=== PATIENT | male | born 1965 | race Caucasian/White ===

== ENCOUNTER 2016-09-24 05:22 | Emergency (ER) | payer MEDICAID ==
[~2016-09-24] VITALS: Ht 157.5 cm; Wt 60.0 kg
[~2016-09-24 05:22] MED LIST: ALBU90AE INH; ASPI81TA2 PO; ATOR40TA64 PO; CITA10TA7 PO; LEVE500T26 PO; LEVO125T11 PO; TRAM50TA4 PO
--- OUTSIDE RECORDS SUMMARY | 2016-09-24 05:27 | XMS REPORT | Continuity of Care Document ---
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 Unknown Active Right sided abdominal pain Unknown Active Shortness of breath Unknown Active Restrictive airway disease Unknown Active Shortness of breath Unknown Active Anxiety Unknown Active Shortness of breath Unknown Active Medications Medication Dose Route Sig Days/Qty Instructions Order Date Discontinued Date Status Levothyroxine Sodium 75 Mcg PO DAILY 04/13/10 02/14/12 Discontinued [Citlopram] 20 Mg 03/07/09 03/14/09 Discontinued [Oxapro] 03/07/09 03/07/09 Discontinued [Singulair] 10 Mg DAILY 03/07/09 03/14/09 Discontinued [Singulair] 03/07/09 03/07/09 Discontinued [Singulair] 03/07/09 03/07/09 Discontinued [Cyclobenzaprine] 10 Mg BEDTIME 03/07/09 03/14/09 Discontinued [Cyclobenzaprine] 03/07/09 03/07/09 Discontinued [Cyclobenzaprine] 03/07/09 03/07/09 Discontinued [nortriptyline] 25 Mg BEDTIME 03/07/09 03/14/09 Discontinued [nortriptyline] 03/07/09 03/07/09 Discontinued [ambien] 12.5 NEEDED 03/07/09 03/14/09 Discontinued [ambien] 03/07/09 03/07/09 Discontinued [advil] 200 Mg NEEDED 03/07/09 03/14/09 Discontinued [advil] 03/07/09 03/07/09 Discontinued [advil] 03/07/09 03/07/09 Discontinued [tylenol] 325 Mg NEEDED 03/07/09 03/07/09 Discontinued [tylenol] 03/07/09 03/14/09 Discontinued [aspercream] 03/07/09 03/07/09 Discontinued [aspercream] 04/13/10 07/23/10 Discontinued [peptobismol] 5 Ml NEEDED 03/07/09 03/14/09 Discontinued Amoxicillin Trihydrate 1,000 Mg PO TWICE A DAY 03/15/09 03/20/09 Discontinued Bismuth Subsalicylate 262 Mg PO NEEDED 04/07/09 05/23/09 Discontinued Zolpidem Tartrate 12.5 Mg PO NEEDED 04/07/09 05/23/09 Discontinued Cyclobenzaprine Hcl 10 Mg PO BEDTIME 04/13/10 02/10/12 Discontinued Montelukast Sodium 10 Mg PO DAILY 04/13/10 02/10/12 Discontinued Citalopram Hydrobromide 20 Mg PO DAILY 04/13/10 07/02/11 Discontinued Ibuprofen 200 Mg PO NEEDED 04/07/09 05/23/09 Discontinued Ibuprofen 200 Mg PO NEEDED 03/14/09 03/14/09 Discontinued [Amoxicillin] 03/15/09 03/20/09 Discontinued Ciprofloxacin Hcl 500 Mg PO TWICE A DAY 04/24/09 05/21/09 Discontinued Tamsulosin Hcl 0.4 Mg PO BEDTIME 04/07/09 04/24/09 Discontinued Darifenacin Hydrobromide 7.5 Mg PO DAILY 04/24/09 05/21/09 Discontinued Oxybutynin Chloride 5 Mg PO TWICE A DAY 04/24/09 05/21/09 Discontinued Guar Gum 1 G PO NEEDED 04/24/09 05/23/09 Discontinued Promethazine Hcl 25 Mg PO NEEDED 04/24/09 05/23/09 Discontinued Hydrocortisone 26 Gm TP NEEDED 04/24/09 05/23/09 Discontinued Atenolol 25 Mg PO DAILY 04/13/10 07/02/11 Discontinued Famotidine 20 Mg PO TWICE A DAY 04/13/10 10/13/12 Discontinued Sucralfate 2 Tsp PO 04/13/10 07/23/10 Discontinued Lansoprazole 30 Mg PO TWICE A DAY 04/13/10 10/13/12 Discontinued Simvastatin 20 Mg PO DAILY 04/13/10 08/29/12 Discontinued Meclizine Hcl 25 Mg PO NEEDED 04/13/10 07/02/11 Discontinued Mirtazapine 45 Mg PO DAILY 04/13/10 02/10/12 Discontinued Zaleplon 10 Mg PO TWICE A DAY 04/13/10 07/02/11 Discontinued Escitalopram Oxalate 10 Mg PO 07/01/11 07/02/11 Discontinued Benztropine Mesylate 0.5 Mg PO DAILY 07/01/11 Active Haloperidol 2 Mg PO BEDTIME 07/01/11 02/10/12 Discontinued Escitalopram Oxalate 20 Mg PO DAILY 07/02/11 03/17/12 Discontinued Ciprofloxacin Hcl 500 Mg PO TWICE A DAY 10/17/11 02/10/12 Discontinued Baclofen 10 Mg PO THREE TIMES A DAY 02/10/12 Active Levothyroxine Sodium 350 Mcg PO DAILY 02/14/12 07/25/13 Discontinued Duloxetine Hcl 20 Mg PO DAILY 03/17/12 10/13/12 Discontinued Atorvastatin Calcium 20 Mg PO BEDTIME 08/29/12 02/07/13 Discontinued Lansoprazole 30 Mg PO DAILY 02/07/13 Active Escitalopram Oxalate 20 Mg PO DAILY 02/07/13 07/25/13 Discontinued Meloxicam 7.5 Mg PO DAILY 02/07/13 Active Divalproex Sodium 1,000 Mg PO BEDTIME 02/07/13 Active Atorvastatin Calcium 40 Mg PO DAILY 02/07/13 Active Trazodone Hcl 100 Mg PO BEDTIME 02/07/13 Active Levothyroxine Sodium 300 Mcg PO DAILY 1 Qty 07/25/13 Active Levothyroxine Sodium 50 Mcg PO DAILY 1 Qty 07/25/13 Active Melatonin 2 Tab PO BEDTIME 07/25/13 Active Docusate Sodium 100 Mg PO BEDTIME 07/25/13 Active Vilazodone Hydrochloride 40 Mg PO DAILY 07/25/13 Active Lurasidone Hcl 120 Mg DAILY 07/25/13 Active Gabapentin 300 Mg PO BEDTIME 07/25/13 Active Sennosides 8.6 Mg PO DAILY 07/25/13 Active Levothyroxine Sodium 400 Mcg PO DAILY 1 Qty 07/25/13 Active Tramadol Hcl 50 Mg PO NEEDED 07/25/13 Active Social History Social History Problem Response Recorded Date/Time Smoking Status Unknown if ever smoked 12/29/2013 6:31pm Chewing Tobacco Status No 12/29/2013 6:31pm Hx Substance Use Yes 12/29/2013 6:31pm Hx Alcohol Use Yes 12/29/2013 6:31pm Has the pt used tobacco in the last 12 months No 03/17/2012 4:01pm Query Response Start Date Stop Date Smoking Status Never smoker Hospital Discharge Instructions No hospital discharge instructions. Plan of Care No plan of care. Functional Status No functional status results. Allergies, Adverse Reactions, Alerts Allergen Type Severity Reaction Status Last Updated Chocolate Allergy Unknown Active 12/29/13 hydrocodone bit Allergy Unknown Active 12/29/13 Hydrocodone Allergy Unknown ITCH Active 12/29/13 Acetaminophen Allergy Unknown Active 12/29/13 Ibuprofen Adverse Reaction Unknown RASH Active 12/29/13 Sulfamethoxazole Allergy Unknown Active 12/29/13 Trimethoprim Allergy Unknown Active 12/29/13 Promethazine Allergy Unknown Active 12/29/13 Tolmetin Allergy Unknown Active 12/29/13 Immunizations Name Given Type Hx Influenza Vaccination Y APR 2011 Historical Hx Pneumococcal Vaccination Y 2006 Historical Hx Tetanus, Diptheria, Pertussis Y 2009 Historical Hx Influenza Vaccination Y APR 2011 Historical Hx Tetanus, Diptheria, Pertussis Y 2009 Historical Vital Signs Acute Vital Signs Vital Response Date/Time Temperature (Fahrenheit) 97.6 deg F (96.8 - 99.1) Temperature (Calculated Celsius) 36.79904 degrees C (36.0 - 37.3) Pulse Rate (adult) 73 bpm (60 - 100) Respiratory Rate 13 breaths/min (10 - 20) O2 Sat by Pulse Oximetry 97 % (90 - 100) Blood Pressure 132/80 mm Hg Height 5 ft 0 in Weight 168 lb Body Mass Index 32.0 kg/m^2 Results Test Source Date Result Interp. Ref. Range Comments Activated Partial Thromboplast Time December 29, 2013 7:00pm 36.5 SEC H 24- 36 Ordering r/o VTE Yes Alanine Aminotransferase (ALT/SGPT) December 29, 2013 7:00pm 22 U/L N 21-72 Albumin December 29, 2013 7:00pm 3.7 G/DL N 3.5-5.0 Albumin/Globulin Ratio December 29, 2013 7:00pm 1.0 RATIO L 1.1-2.2 Alkaline Phosphatase December 29, 2013 7:00pm 83 U/L N 38-126 Amylase Level July 25, 2013 8:50am 77 U/L N 30-110 Anion Gap December 29, 2013 7:00pm 11 MEQ/L N 5-15 Arterial Blood Base Excess May 25, 2009 5:16pm 0.0 MMOL/L N -2.0- 2.0 Is the patient on room air? YWhat is the Source? (Liters or Percent) ROOM AIR Arterial Blood HCO3 May 25, 2009 5:16pm 24 MEQ/L N 22-26 Is the patient on room air? YWhat is the Source? (Liters or Percent) ROOM AIR Arterial Blood Oxygen Content May 25, 2009 5:16pm Not Performed - Arterial Blood Partial Pressure CO2 May 25, 2009 5:16pm 35 MMHG N 34-45 Is the patient on room air? YWhat is the Source? (Liters or Percent) ROOM AIR Arterial Blood Total CO2 May 25, 2009 5:16pm 24.9 MEQ/L N 23-27 Is the patient on room air? YWhat is the Source? (Liters or Percent) ROOM AIR Arterial Blood pH May 25, 2009 5:16pm 7.440 N 7.350-7.450 Is the patient on room air? YWhat is the Source? (Liters or Percent) ROOM AIR Aspartate Amino Transf (AST/SGOT) December 29, 2013 7:00pm 25 U/L N 17-59 B-Type Natriuretic Peptide February 28, 2010 1:45pm < 15 PG/ML L 15-100 BUN/Creatinine Ratio December 29, 2013 7:00pm 9 RATIO N 6-26 Band Neutrophils # February 10, 2012 8:11pm 0.5 T/MM3 - Band Neutrophils % February 10, 2012 8:11pm 5.0 % N 0-6 Basophils # (Auto) December 29, 2013 7:00pm 0.1 T/MM3 N 0-0.2 Ordering r/o VTE Yes Basophils # (Manual) May 25, 2009 5:45am 0.0 T/MM3 N 0-0.2 COMMENT DO OFF OF BLOOD FROM THIS MORNING Basophils % (Manual) May 25, 2009 5:45am 0.0 % N 0-2 COMMENT DO OFF OF BLOOD FROM THIS MORNING Basophils (%) (Auto) December 29, 2013 7:00pm 1.2 % N 0-2 Ordering r/o VTE Yes Blood Gas Oxygen Saturation May 25, 2009 5:16pm 91.0 % L 95.0-98.0 Is the patient on room air? YWhat is the Source? (Liters or Percent) ROOM AIR Blood Gas Tidal Volume May 25, 2009 5:16pm Not Performed 0-1200 Blood Gas Vent Rate May 25, 2009 5:16pm Not Performed 0-30 Blood Urea Nitrogen December 29, 2013 7:00pm 8.0 MG/DL L 9-20 Calcium Level December 29, 2013 7:00pm 8.7 MG/DL N 8.4-10.2 Calculated Osmolality December 29, 2013 7:00pm 271 MOSM/KG N 261-280 Carbon Dioxide Level December 29, 2013 7:00pm 26 MEQ/L N 22-30 Chloride Level December 29, 2013 7:00pm 105 MEQ/L N 98-107 Cholesterol Level January 31, 2012 8:45am 196 MG/DL N 132-199 Cholesterol/HDL Ratio January 31, 2012 8:45am 5.0 RATIO N 0-5.0 Conjugated Bilirubin August 29, 2012 12:00pm 0.00 MG/DL N 0.00-0.30 Creatinine December 29, 2013 7:00pm 0.9 MG/DL N 0.8-1.5 D-Dimer December 29, 2013 7:00pm < 150 NG/ML 0-230 <224 NG/ML= PRESUMPTIVE NEGATIVE FOR PE OR DVT>224 NG/ML=ADDITIONAL EVALUATION FOR PE OR DVT RECOMMENDED Differential Total Cells Counted February 28, 2010 1:45pm 50 % - Eosinophils # (Auto) December 29, 2013 7:00pm 0.5 T/MM3 N 0-0.5 Ordering r/ o VTE Yes Eosinophils # (Manual) February 10, 2012 8:11pm 0.7 T/MM3 H 0-0.5 Eosinophils % (Manual) February 10, 2012 8:11pm 6.0 % H 0-4 Eosinophils (%) (Auto) December 29, 2013 7:00pm 7.7 % H 0-4 Ordering r/o VTE Yes Globulin December 29, 2013 7:00pm 3.6 G/DL N 2.4-3.6 Glucose Level December 29, 2013 7:00pm 97 MG/DL N 75-110 Group A Streptococcus Screen April 10, 2010 5:25am Negative - Strep culture confirmation to follow Hematocrit December 29, 2013 7:00pm 46.9 % N 41-53 Ordering r/o VTE Yes Hemoglobin December 29, 2013 7:00pm 15.5 GM/DL N 13.5-17.5 Ordering r/o VTE Yes Hemoglobin A1c December 16, 2011 12:40pm 5.5 % L 6-7 <6.0 NON-DIABETIC RANGE6.0-7.0 ADA THERAPEUTIC RANGE >7.0 ACTION SUGGESTED LDL Cholesterol, Calculated January 31, 2012 8:45am 157 N 66-159 Lipase July 25, 2013 8:50am 61 U/L N 23-300 Lymphocytes # (Auto) December 29, 2013 7:00pm 1.6 T/MM3 N 1-4.8 Ordering r/ o VTE Yes Lymphocytes # (Manual) February 10, 2012 8:11pm 3.7 T/MM3 N 1-4.8 Lymphocytes % (Manual) February 10, 2012 8:11pm 34.0 % N 23-45 Lymphocytes (%) (Auto) December 29, 2013 7:00pm 23.5 % N 23-45 Ordering r/ o VTE Yes Mean Corpuscular Hemoglobin December 29, 2013 7:00pm 31.6 UUG N 26-34 Ordering r/o VTE Yes Mean Corpuscular Hemoglobin Concent December 29, 2013 7:00pm 33.0 GM/DL N 31 -37 Ordering r/o VTE Yes Mean Corpuscular Volume December 29, 2013 7:00pm 95.5 UM3 N 80-100 Ordering r/o VTE Yes Mean Platelet Volume December 29, 2013 7:00pm 9.5 UM3 N 9.4-12.4 Ordering r /o VTE Yes Monocytes # (Auto) December 29, 2013 7:00pm 0.5 T/MM3 N 0-0.8 Ordering r/o VTE Yes Monocytes # (Manual) February 10, 2012 8:11pm 0.5 T/MM3 N 0-0.8 Monocytes % (Manual) February 10, 2012 8:11pm 5.0 % N 0-9.0 Monocytes (%) (Auto) December 29, 2013 7:00pm 7.7 % N 0-9.0 Ordering r/o VTE Yes Neutrophils # (Auto) December 29, 2013 7:00pm 4.1 T/MM3 N 1.8-7.7 Ordering r/o VTE Yes Neutrophils # (Manual) February 10, 2012 8:11pm 5.5 T/MM3 N 1.8-7.7 Neutrophils % (Manual) February 10, 2012 8:11pm 50.0 % N 33-66 Neutrophils (%) (Auto) December 29, 2013 7:00pm 59.5 % N 33-66 Ordering r/ o VTE Yes Platelet Count December 29, 2013 7:00pm 269 T/MM3 N 130-400 Ordering r/o VTE Yes Potassium Level December 29, 2013 7:00pm 3.2 MEQ/L L 3.6-5 Prolactin December 11, 2012 7:40am 37.4 NG/ML - Normal Female (Non- ): 3.0-18.6 ng/ml;Males: 3.7-17.9 ng/ml Prostate Specific Antigen March 07, 2009 10:57pm 0.82 NG/ML N 0-4.0 Prothromb Time International Ratio December 29, 2013 7:00pm 0.98 N 0.81- 1.09 THERAPUTIC RANGE=2.00-3.00 FOR ANTI-THROMBOSIS THERAPUTIC RANGE=2.50- 3.50 FOR IMPLANTED VALVE RDW Standard Deviation December 29, 2013 7:00pm 45.1 FL N 36.9-50.2 Ordering r/o VTE Yes Reactive Lymphocytes January 08, 2008 10:00am 3.0 % H 0-0 COMMENT ADMIT [id number] Red Blood Count December 29, 2013 7:00pm 4.91 M/MM3 N 4.50-5.90 Ordering r/ o VTE Yes Sodium Level December 29, 2013 7:00pm 142 MEQ/L N 134-144 Tests Not Done September 05, 2009 12:00am Not done - TYPE MAPPER Thyroid Stimulating Hormone (TSH) December 29, 2013 7:00pm 130.00 MIU/L H 0.47-4.68 Total Bilirubin December 29, 2013 7:00pm 0.30 MG/DL N 0.20-1.30 Total Protein December 29, 2013 7:00pm 7.3 G/DL N 6.3-8.2 Triglycerides Level January 31, 2012 8:45am 158 MG/DL N 40-160 Troponin I December 29, 2013 7:00pm < 0.012 ng/ml 0-0.12 Unconjugated Bilirubin August 29, 2012 12:00pm 0.90 MG/DL N 0.00-1.10 Urine Bacteria July 02, 2011 9:45pm 2+ H - Has specimen been collected/obtained? Y Urine Bilirubin July 25, 2013 9:45am Negative - Has specimen been collected/obtained? Y Urine Blood July 25, 2013 9:45am Negative - Has specimen been collected/obtained? Y Urine Collection Type July 25, 2013 9:45am Cleancatch-midstream - Has specimen been collected/obtained? Y Urine Color July 25, 2013 9:45am Yellow - Has specimen been collected/obtained? Y Urine Culture Indicated July 02, 2011 9:45pm Cult reflexed &setup - Has specimen been collected/obtained? Y Urine Glucose (UA) July 25, 2013 9:45am Negative - Has specimen been collected/obtained? Y Urine Ketones July 25, 2013 9:45am Negative - Has specimen been collected/obtained? Y Urine Leukocyte Esterase July 25, 2013 9:45am Negative - Has specimen been collected/obtained? Y Urine Mucus April 13, 2010 10:22am Present - Has specimen been collected/obtained? Y Urine Nitrite July 25, 2013 9:45am Negative - Has specimen been collected/obtained? Y Urine Protein July 25, 2013 9:45am Negative - Has specimen been collected/obtained? Y Urine RBC July 02, 2011 9:45pm 50-200 /HPF H - Has specimen been collected/obtained? Y Urine Specific [place] July 25, 2013 9:45am 1.025 - Has specimen been collected/obtained? Y Urine Squamous Epithelial Cells May 23, 2009 9:34pm Few - COMMENT C AND S IF INDICATEDHas specimen been collected/obtained? Y Urine Turbidity July 25, 2013 9:45am Clear - Has specimen been collected/obtained? Y Urine Urobilinogen July 25, 2013 9:45am 0.2 EU/DL - Has specimen been collected/obtained? Y Urine WBC July 02, 2011 9:45pm 30-50 /HPF H - Has specimen been collected/obtained? Y Urine WBC Clumps March 15, 2009 4:35pm Few - Has specimen been collected/obtained? Y Urine Yeast March 15, 2009 4:35pm 3+ - Has specimen been collected/obtained? Y Urine pH July 25, 2013 9:45am 5.5 - Has specimen been collected/ obtained? Y VLDL Cholesterol January 31, 2012 8:45am 31.6 MG/DL H 0-28 Valproic Acid (Depakene) Level February 08, 2013 2:37pm < 10.0 UG/ML L 50- 120 CALL RESUTLS [id number] OPT 5 STAT PLEASE White Blood Count December 29, 2013 7:00pm 6.9 T/MM3 N 4.5-11.0 Ordering r/ o VTE Yes Chemistry Specimen Hemolysis December 29, 2013 7:00pm 16 N 0-25 0-25: No Hemolysis.26-70: Slight Hemolysis - can falsely elevate K and Urine Protein. 71-285: Moderate Hemolysis - can falsely elevate K, Troponin I, CA 19-9, PTH, CSF GLucose, and Urine Protein, and can falsely decrease Phenytoin. 286-999: Gross Hemolysis - can falsely elevate K, Troponin I, CA 19-9, PTH, CSF Glucose, and Urine Protine, and can falsely decrease Phenytoin. Recommend specimen recollection. Oxygen Delivery Method (LAB) May 25, 2009 5:16pm Room air - Is the patient on room air? YWhat is the Source? (Liters or Percent) ROOM AIR Urinalysis Comment July 25, 2013 9:45am Microscopic not ind. - Has specimen been collected/obtained? Y Glucometer October 13, 2012 11:15am 114 mg/dL H 75-110 Lab Scanned Report February 08, 2013 5:35pm LAB TEST FORM REQUEST [id number] - EKG May 23, 2009 1:15pm Complete - HDL Cholesterol Direct January 31, 2012 8:45am 39 MG/DL L 40-60 Atypical/Reactive Lymphocytes January 08, 2008 10:00am 0.3 T/MM3 H 0-0 COMMENT ADMIT [id number] Turbidity December 29, 2013 7:00pm 57 H 0-20 0-21: Turbidity not present.22 -999: Turbidity present - Gross turbidity can falsely decrease Lipase and Triglycerides. Glomerular Filtration Rate Calc December 29, 2013 7:00pm 90 - Immature Granulocyte # (Auto) December 29, 2013 7:00pm 0.03 T/MM3 N 0.00- 0.03 Ordering r/o VTE Yes Immature Granulocyte % (Auto) December 29, 2013 7:00pm 0.4 % N 0.0-0.5 Ordering r/o VTE Yes Arterial Blood pO2 at Patient Temp May 25, 2009 5:16pm 58 MMHG L 80 -100 Is the patient on room air? YWhat is the Source? (Liters or Percent) ROOM AIR Icterus Index December 29, 2013 7:00pm < 2 0-7 AW-Ckt-H-Type Natriuretic Peptide December 29, 2013 7:00pm 23 PG/ML N 0-175 Rule in cut points: <50 years old=450; 50-75 years old=900; >75 years old=1800; When utilizing ProBNP rule-in cut points, adjustment for impaired renal function is typically not required. Urine Microscopic Not Indicated February 10, 2012 9:15pm Not indicated - Has specimen been collected/obtained? Y Blood Culture Blood February 28, 2010 1:45pm NO GROWTH AFTER 5 DAYS Group A Streptococcus Culture Throat April 10, 2010 5:47am Helicobacter pylori Rapid Urease Gastric Biopsy May 24, 2009 8:12am Urine Culture Urine, Straight Cath July 02, 2011 10:06pm Procedures Procedure Status Date Provider(s) PLACE NEEDLE IN VEIN completed 12/29/13 JD MACHADO MD Encounters Encounter Location Date/Time Departed Emergency Room [facility] 12/29/13 6:19pm Registered Clinic [facility] 12/25/13 7:51am Recent Diagnosis
--- NOTE | 2016-09-24 05:28 | NUR ---
PROVIDER DR GATICA IN ROOM TO SEE PT
[2016-09-24 05:30] VITALS: Ht 157.5 cm; Wt 60.0 kg
[2016-09-24] MEDS ORDERED: ALBUTEROL INH.SOLN. 2.5mg/3ml (0.083%) Neb. AEROSOL ONE (05:30)
--- NOTE | 2016-09-24 05:33 | ERPDOC ---
Departure Disposition Decision Date: Sep 24, 2016 (HÉCTOR GATICA MD) Disposition Decision Time: 07:07 (ARTURO RAMEY DO) Disposition: 01 DISCHARGED HOME, SELF-CARE Impression Impression (HÉCTOR GATICA MD) Impression: Primary Impression: Asthma exacerbation Severity: Mild (ARTURO RAMEY DO) Condition: Improved Seen By: Physician only (ARTURO RAMEY DO) Referrals: LISA JAIME DO (PCP) 2 Days Patient Instructions: Asthma (ED), Reactive Airways Disease (ED) Problems/Meds/Labs Reviewed?: Yes Medications reviewed and manag: Yes (ARTURO RAMEY DO) Follow up care ordered?: Yes Mental Status: Alert, Oriented (ARTURO RAMEY DO) Scripts Albuterol Sulfate (Albuterol Sulfate) 2.5 Mg/0.5 Ml Vial.neb 1 VIAL AEROSOL Q4HPRN for WHEEZING, #120 VIAL 0 Refills Prov: ARTURO RAMEY DO 09/24/16 Prednisone (Prednisone) 20 Mg Tablet 40 MG PO DAILY for 5 Days, #10 TAB 0 Refills Take daily each morning Prov: ARTURO RAMEY DO 09/24/16 HPI - Dyspnea General Chief Complaint: Dyspnea/Respdistress Stated Complaint: SHORTNESS OF BREATH Time Seen by Provider: 05:24 Source: patient Exam Limitations: no limitations (HÉCTOR GATICA MD) Time Seen by Provider: 06:47 (ARTURO RAMEY DO) HPI - Dyspnea Initial Comments Patient presents with a 90 minutes of feeling short of breath with a slight cough. Feels as though his asthma is flaring up. Patient took 2 puffs of an inhaler at home, did not improve, so he came to the ER. Similar symptoms with asthma in the past Occurred At: home Onset/Timing: Rapid Duration: 1-3 hrs Severity: mild Prior Episodes/Possible Cause: occasional episodes Associated Symptoms: cough, shortness of breath, DENIES: chest pain, diaphoresis, fever/chills, headaches, loss of appetite, malaise, nausea/vomiting , rash, seizure, syncope, weakness Aspirin Treatment Today: unknown Hx of Similar Symptoms: Yes (HÉCTOR GATICA MD) Allergies: Coded Allergies: Chocolate (Verified Allergy, Unknown, RASH, 09/24/16) hydrocodone (Verified Allergy, Unknown, ITCH, 09/24/16) potassium phosphate (Unverified Allergy, Unknown, 09/24/16) promethazine (Verified Allergy, Unknown, 09/24/16) sodium bicarbonate (Unverified Allergy, Unknown, 09/24/16) sulfamethoxazole (Verified Allergy, Unknown, 09/24/16) tolmetin (Verified Allergy, Unknown, 09/24/16) trimethoprim (Verified Allergy, Unknown, 09/24/16) ibuprofen (Verified Adverse Reaction, Unknown, RASH, 09/24/16) Past History Past Medical History Metabolic: hypothyroidism ENMT: vision problems Respiratory: asthma GI: GERD, IBS Male: UTI, kidney stones, other, prostatitis Neurological: other Musculoskeletal: osteoarthritis Psychological: anxiety, depression (HÉCTOR GATICA MD) Surgical History General: EGD, appendix, colonoscopy, gallbladder Reproductive/: other Joint: hip, other (HÉCTOR GATICA MD) Vaccines Hx Influenza Vaccination: No (not this year) Hx Pneumococcal Vaccination: No (unsure) Hx Tetanus, Diptheria, Pertuss: Yes (2009) (HÉCTOR GAITCA MD) Social History Does patient use chewing tobac: No Substance Use Type: does not use Alcohol Intake: none Marital Status: Single Housing: house Household Members: family Service: No Current Occupational Status: unemployed Occupational Hazard: No Advance Directives: Yes Full Code (HÉCTOR GATICA MD) Review of Systems Constitutional Constitutional: DENIES: appetite decrease, appetite increase, chills, dizziness , fever, weakness (HÉCTOR GATICA MD) ENMT Ears: DENIES: pain Hearing: DENIES: hearing loss, tinnitus Balance: DENIES: vertigo Mouth/Throat: DENIES: change in swallowing, change in voice, hoarsness, painful swallowing, sore throat (HÉCTOR GATICA MD) Cardiovascular Cardiac: DENIES: chest pain, dyspnea on exertion Rhythm/Rate: DENIES: irregular beat, palpitations, tachycardia Vascular: DENIES: pedal edema (HÉCTOR GATICA MD) Pulmonary Respiratory: cough, dyspnea, DENIES: exposure to TB, hyperventilation, pleuritic chest pain, pneumonia hx, recent risky activities, sputum, tachypnea ( HÉCTOR GATICA MD) GI Upper Abdomen: DENIES: dysphagia, heartburn/indigestion, nausea, pain, vomiting Lower Abdomen: DENIES: blood in stool, constipation, diarrhea, pain (HÉCTOR GATICA MD) General: DENIES: burning, dysuria, frequency, pain, urgency (HÉCTOR GATICA MD) Musculoskeletal General: DENIES: cramps, joint pain, joint swelling, pain, weakness (HÉCTOR GATICA MD) Integumentary Skin: DENIES: rash, sores (HÉCTOR GATICA MD) Neurological General: DENIES: headache, numbness, tingling, vertigo, weakness (HÉCTOR GATICA MD) Physical Exam General General Nourishment: well nourished, well developed, appears stated age General Body Habitus: well groomed (HÉCTOR GATICA MD) Vitals and Pain First Documented Vital Signs Date Time Temp Pulse Resp B/P Pulse Ox O2 Delivery O2 Flow Rate FiO2 09/24/16 05:30 98.6 88 23 121/59 97 Room Air (ARTURO RAMEY DO) Vitals and Pain Weight: Kilograms: Height (feet): 5 Height (inches): 0 Triage Pain Scale: (HÉCTOR GATICA MD) RN VS reviewed by Provider: Yes (HÉCTOR GATICA MD) Normal Exams: Head: Normocephalic w/o trauma Eyes: Pupils are PERRLA w/ EOMI, No scleral icterus, irritation, or foreign bodies noted Dental: No fractured, loose, or missing teeth noted Neck: Full range of motion, without adenopathy, JVD, bruits or thyromegaly CV: Regular rate and rhythm, without murmur or gallop, Pulses 2+ all extremities, capillary refill, <2 seconds all ext., no pedal edema noted Abdomen: Bowel sounds positive, soft, non-tender, non-distended, no hepatosplenomegaly, masses or bruits noted Lymphatic: No lymphadenopathy, or lymphedema noted Musculoskeletal: No tenderness, or deformity noted, good range of motion, all extremities Integumentary: No rashes, hives, or bruising noted, hair and nails, without abnormality Neurologic: Patient is alert, and oriented, cranial nerves, motor/sensory/ cerebellar, exams w/o gross deficits, to observation Psychiatric: Patient exhibits, appropriate attention, emotion and affect (HÉCTOR GATICA MD) Respiratory (brief) Respiratory: FOUND: equal bilaterally, symmetrical, wheezes (mild wheezes bilaterally, moderate air movement), NOT FOUND: clear all [place], rales, tenderness (HÉCTOR GATICA MD) Progress Results/Orders Orders Procedure Category Date Status Time Albuterol Sulfate PHA 09/24/16 Complete (Proventil 2.5 Mg/3 Ml 05:30 Albuterol/Ipratropium PHA 09/24/16 Complete (Duoneb) 06:00 Prednisone 20mg PHA 09/24/16 Complete (Prepack) (Prednisone 06:00 Chest, Pa & Lateral RAD 09/24/16 Taken (ARTURO RAMEY DO) Orders Procedure Category Date Status Time Albuterol Sulfate PHA 09/24/16 Complete (Proventil 2.5 Mg/3 Ml 05:30 (HÉCTOR GATICA MD) Medications Current ED Medications Albuterol Sulfate (Proventil 2.5 Mg/3 ml) 5 mg O ONCE AEROSOL Last administered on 09/24/16 05:35; Start 09/24/16 at 05:30; Stop 09/24/16 at 05:31 ; Status DC Albuterol/ Ipratropium (Duoneb) 6 ml O ONCE AEROSOL Last administered on 06:04; Start 09/24/16 at 06:00; Stop 09/24/16 at 06:01; Status DC Prednisone (PredniSONE 20MG (PrePack)) 1 pack O ONCE SENT HOME Last administered on 09/24/16 05:54; Start 09/24/16 at 06:00; Stop 09/24/16 at 06:01 ; Status DC (ARTURO RAMEY DO) Medications Current ED Medications Albuterol Sulfate (Proventil 2.5 Mg/3 ml) 5 mg O ONCE AEROSOL Last administered on 09/24/16 05:35; Start 09/24/16 at 05:30; Stop 09/24/16 at 05:31 ; Status DC (HÉCTOR GATICA MD) Progress Progress Patient given 2 Proventil treatments [id number] - some improvement, however patient has mild persistent cough, feeling like his breathing is still tighter than usual. Chest x-ray is ordered, patient is given additional 2 nebs 2, with prednisone 60 mg orally Disposed to Dr. Ramey at 6 AM pending chest x-ray and reevaluation (HÉCTOR GATICA MD) Progress Upon reassessment patient is feeling markedly improved in the emergency Department. Patient was given prednisone 60 mg by mouth times one. Patient was given nebulized breathing treatments in the emergency department with improvement of symptoms. Patient is mildly tachycardic secondary to the nebulized albuterol. Patient notes chest x-ray is unremarkable. Patient is feeling back to baseline. Patient is discharged home in improved condition. Patient is to follow up as instructed. Patient is to return to the emergency Department if his condition worsens or changes in any manner. Patient is in agreement with the current plan of management. Patient is to follow up as instructed. Patient was provided with a prescription for prednisone 40 mg by mouth daily 5 days. Patient is also provided with a refill of his albuterol nebulizer solution which he has been out of. (ATRURO RAMEY DO) Xray Xray : Xray: CXR PA/Lat Interpretation: Normal, Interpreted by Me (ARTURO RAMEY DO) HÉCTOR GATICA MD Sep 24, 2016 05:33 ARTURO RAMEY DO Sep 24, 2016 07:10
--- NOTE | 2016-09-24 05:35 | NUR ---
STATUS RT STAFF IN ROOM. RT TX IN PROGRESS
[2016-09-24] MEDS ORDERED: TOPI25TA37 PO (05:49)
[2016-09-24] MEDS ORDERED: PredniSONE 20mg TAB #3 (PrePack) SENT HOME ONE (06:00)
[2016-09-24] MEDS ORDERED: ALBUTEROL/IPRATROPIUM INHAL. 2.5mg-0.5mg/3ml Neb. AEROSOL ONE (06:00)
--- NOTE | 2016-09-24 06:16 | NUR ---
RADIOLOGY PT TO RADIOLOGY PER CART
--- OUTSIDE RECORDS SUMMARY | 2016-09-24 06:18 | XMS REPORT | Continuity of Care Document ---
Author Author [facility] Organization [facility] Address Unknown Phone Unavailable Care Team Providers Care Shovel Loader Operator Name Role Phone ACE REBOLLAR MD Primary Care Physician [phone] Insurance Providers Payer Name Policy Number Subscriber Name Relationship [facility] [id number] Raya Marvin 18 Self Advance Directives Directive [...] F (96.8 - 99.1) Temperature (Calculated Celsius) 36.05349 degrees C (36.0 - 37.3) Pulse Rate [...] 10:00am 3.0 % H 0-0 COMMENT ADMIT [id number] Red Blood Count December 29, 2013 7:00pm 4.91 M/MM3 N 4.50-5.90 Ordering r/ o VTE Yes Sodium Level December 29, 2013 7:00pm 142 MEQ/L N 134-144 Tests Not Done September 05, 2009 12:00am Not done - SOCK AND STOCKING IRONER Thyroid Stimulating Hormone (TSH) December 29, 2013 [...] Has specimen been collected/obtained? Y Urine Specific [place] July 25, 2013 9:45am 1.025 - Has [...] 10.0 UG/ML L 50- 120 CALL RESUTLS [id number] OPT 5 STAT PLEASE White Blood Count [...] 08, 2013 5:35pm LAB TEST FORM REQUEST [id number] - EKG May 23, 2009 1:15pm Complete - HDL Cholesterol Direct January 31, 2012 8:45am 39 MG/DL L 40-60 Atypical/Reactive Lymphocytes January 08, 2008 10:00am 0.3 T/MM3 H 0-0 COMMENT ADMIT [id number] Turbidity December 29, 2013 7:00pm 57 H [...] December 29, 2013 7:00pm < 2 0-7 GA-[id number]-[id number]-Type Natriuretic Peptide December 29, 2013 7:00pm 23 [...] Encounters Encounter Location Date/Time Departed Emergency Room [facility] 12/29/13 6:19pm Registered Clinic [facility] 12/25/13 7:51am Recent Diagnosis
--- NOTE | 2016-09-24 06:26 | NUR ---
RADIOLOGY PT FROM RADIOLOGY PER CART
--- NOTE | 2016-09-24 07:00 | NUR ---
STATUS PT REPORTS HE IS FEELING A LITTLE BETTER
[2016-09-24] MEDS ORDERED: PRED20TA PO (07:10)
[2016-09-24] MEDS ORDERED: ALBU2.5V2 AEROSOL (07:10)
[2016-09-24 07:17] VITALS: BP 106/70; PULSE 102; RESP 18; TEMP 98.6; O2SAT 98
--- NOTE | 2016-09-24 07:17 | NUR ---
DISMISSAL DISMISSAL INSTRUCTIONS WITH RX X2 TO PT AND WITHOUT FURTHER QUESTIONS. PT LEFT ON PERSONAL SCOOTER WITHOUT DIFFICULTY
--- NOTE | 2016-09-24 07:50 | DI ---
INDICATION: ITS.REASON: cough, dyspnea PROCEDURE: CHEST 2-VIEWS UPRIGHT (PA \T\ LAT) Encounter: Initial Comparison: August 16, 2016 Findings: The lungs are stable in appearance without new focal airspace consolidation. There is no pleural effusion or pneumothorax. The heart size, pulmonary vascularity and mediastinal contours are unchanged. IMPRESSION: Stable appearance of the chest without acute cardiopulmonary disease. There is a preliminary report by virtual radiologic. .
== END 2016-09-24 07:17 | disposition home or self-care (01) ==
LOC: ED 05:22
DX: J45.901 Unspecified asthma with (acute) exacerbation (principal)
CPT/HCPCS: 71020; 94640; 99283; J7512; J7611

== ENCOUNTER 2016-10-21 13:08 | Emergency (ER) | payer MEDICAID ==
[~2016-10-21] VITALS: Ht 152.4 cm; Wt 71.1 kg
[~2016-10-21 13:08] MED LIST changes: +ALBU2.5V2 AEROSOL; +PRED20TA PO; +TOPI25TA37 PO; -TRAM50TA4 PO
[2016-10-21 13:09] VITALS: TEMP 98; Ht 152.4 cm; Wt 71.1 kg
--- OUTSIDE RECORDS SUMMARY | 2016-10-21 13:12 | XMS REPORT | Continuity of Care Document ---
Author Author [facility] Organization [facility] Address Unknown Phone Unavailable Care Team Providers Care Restaurant Front Manager Name Role Phone ACE REBOLLAR MD Primary Care Physician [phone] Insurance Providers Payer Name Policy Number Subscriber Name Relationship [facility] [id number] Raya Marvin 18 Self Advance Directives Directive [...] F (96.8 - 99.1) Temperature (Calculated Celsius) 36.86714 degrees C (36.0 - 37.3) Pulse Rate [...] 10:00am 3.0 % H 0-0 COMMENT ADMIT [id number] Red Blood Count December 29, 2013 7:00pm 4.91 M/MM3 N 4.50-5.90 Ordering r/ o VTE Yes Sodium Level December 29, 2013 7:00pm 142 MEQ/L N 134-144 Tests Not Done September 05, 2009 12:00am Not done - PROMOTION SPECIALIST Thyroid Stimulating Hormone (TSH) December 29, 2013 [...] Has specimen been collected/obtained? Y Urine Specific [place] July 25, 2013 9:45am 1.025 - Has [...] 10.0 UG/ML L 50- 120 CALL RESUTLS [id number] OPT 5 STAT PLEASE White Blood Count [...] 08, 2013 5:35pm LAB TEST FORM REQUEST [id number] - EKG May 23, 2009 1:15pm Complete - HDL Cholesterol Direct January 31, 2012 8:45am 39 MG/DL L 40-60 Atypical/Reactive Lymphocytes January 08, 2008 10:00am 0.3 T/MM3 H 0-0 COMMENT ADMIT [id number] Turbidity December 29, 2013 7:00pm 57 H [...] December 29, 2013 7:00pm < 2 0-7 BK-Fsd-S-Type Natriuretic Peptide December 29, 2013 7:00pm 23 [...] Encounters Encounter Location Date/Time Departed Emergency Room [facility] 12/29/13 6:19pm Registered Clinic [facility] 12/25/13 7:51am Recent Diagnosis
--- NOTE | 2016-10-21 13:16 | NUR ---
PROVIDER Jon PRASAD APRN AT BEDSIDE FOR EXAM.
--- NOTE | 2016-10-21 13:30 | NUR ---
RADIOLOGY PT TO RADIOLOGY BY CART AT THIS TIME.
--- NOTE | 2016-10-21 13:40 | NUR ---
RETURN PT RETURNED FROM RADIOLOGY BY CART AT THIS TIME.
[2016-10-21 13:41] LABS: BASOPHILS # (AUTO) 0.1 T/MM3 (0-0.2); BASOPHILS % (AUTO) 0.6 % (0-2); EOSINOPHILS # (AUTO) 0.4 T/MM3 (0-0.5); EOSINOPHILS % (AUTO) 4.9 % (0-4); HCT - HEMATOCRIT 50.8 % (41-53); HGB - HEMOGLOBIN 16.6 GM/DL (13.5-17.5); IMMATURE GRANULOCYTE # (AUTO) 0.03 T/MM3 (0.00-0.03); IMMATURE GRANULOCYTE % (AUTO) 0.3 % (0.0-0.5); LYMPHOCYTES # (AUTO) 1.8 T/MM3 (1-4.8); MEAN CORPUSCULAR HGB 31.5 UUG (26-34); MEAN CORPUSCULAR HGB CONC(MCHC 32.7 GM/DL (31-37); MEAN CORPUSCULAR VOLUME 96.4 UM3 (80-100); MEAN PLATELET VOLUME 9.7 UM3 (9.4-12.4); MONOCYTES # (AUTO) 0.5 T/MM3 (0-0.8); MONOCYTES % (AUTO) 5.9 % (0-9.0); NEUTROPHILS #(AUTO)-ABSOLUTE 6.2 T/MM3 (1.8-7.7); NEUTROPHILS % (AUTO) 68.3 % (33-66); RED BLOOD COUNT 5.27 M/MM3 (4.50-5.90)
--- NOTE | 2016-10-21 13:45 | DI ---
Indication: ITS.REASON: unresponsive episodes PROCEDURE: CT HEAD W/O CONTRAST: Encounter: Initial Comparison: Head CT dated May 24, 2016 Technique: Axial CT images through the head were performed without contrast. Iterative Reconstruction dose reducing technique was utilized. FINDINGS: Abnormal but stable appearance of the brain with a large cystic lesion replacing portions of the right frontal and parietal lobes apparently communicating with the abnormal appearing right lateral ventricle. There is no acute hemorrhage or new midline shift. The lateral frontal and basal ganglia calcifications are redemonstrated. No discrete territorial stroke identified. Ventricular system is grossly stable. No acute calvarial fracture. Impression: Stable appearance of the brain without evidence of acute intracranial hemorrhage or obvious acute stroke. .
[2016-10-21 13:47] LABS: ANION GAP 13 MEQ/L (5-15); BUN/CREATININE RATIO 11 RATIO (6-26); CALCIUM 9.5 MG/DL (8.4-10.2); CHLORIDE 112 MEQ/L (98-107); CO2 - CARBON DIOXIDE 24 MEQ/L (22-30); GLOMERULAR FILTRATION RATE 79; GLUCOSE 117 MG/DL (75-110); POTASSIUM 3.9 MEQ/L (3.6-5); SODIUM 149 MEQ/L (134-144)
--- NOTE | 2016-10-21 13:49 | DI ---
Indication: ITS.REASON: unresponsive episode PROCEDURE: CHEST 1 VIEW: Encounter: Initial Comparison: September 24, 2016 Findings: The lungs are stable in appearance without new focal airspace consolidation. Hypoinflation. There is no pleural effusion or pneumothorax. Cholecystectomy clips. The heart size, pulmonary vascularity and mediastinal contours are unchanged. IMPRESSION: Stable appearance of the chest without acute cardiopulmonary disease. .
[2016-10-21] MEDS ORDERED: ALBU2.5V7 AEROSOL (13:55)
[2016-10-21] MEDS ORDERED: TOPI50TA25 PO (13:57)
[2016-10-21] MEDS ORDERED: PRED10TA PO (13:57)
[2016-10-21] MEDS ORDERED: CITA20TA9 PO (13:57)
--- OUTSIDE RECORDS SUMMARY | 2016-10-21 13:58 | XMS REPORT | Continuity of Care Document ---
Author Author [facility] Organization [facility] Address Unknown Phone Unavailable Care Team Providers Care Salvage Machine Operator Name Role Phone ACE REBOLLAR MD Primary Care Physician [phone] Insurance Providers Payer Name Policy Number Subscriber Name Relationship [facility] [id number] Raya Marvin 18 Self Advance Directives Directive [...] F (96.8 - 99.1) Temperature (Calculated Celsius) 36.16671 degrees C (36.0 - 37.3) Pulse Rate [...] 10:00am 3.0 % H 0-0 COMMENT ADMIT [id number] Red Blood Count December 29, 2013 7:00pm 4.91 M/MM3 N 4.50-5.90 Ordering r/ o VTE Yes Sodium Level December 29, 2013 7:00pm 142 MEQ/L N 134-144 Tests Not Done September 05, 2009 12:00am Not done - CONDUIT MECHANIC Thyroid Stimulating Hormone (TSH) December 29, 2013 [...] Has specimen been collected/obtained? Y Urine Specific [place] July 25, 2013 9:45am 1.025 - Has [...] 10.0 UG/ML L 50- 120 CALL RESUTLS [id number] OPT 5 STAT PLEASE White Blood Count [...] 08, 2013 5:35pm LAB TEST FORM REQUEST [id number] - EKG May 23, 2009 1:15pm Complete - HDL Cholesterol Direct January 31, 2012 8:45am 39 MG/DL L 40-60 Atypical/Reactive Lymphocytes January 08, 2008 10:00am 0.3 T/MM3 H 0-0 COMMENT ADMIT [id number] Turbidity December 29, 2013 7:00pm 57 H [...] December 29, 2013 7:00pm < 2 0-7 LE-Xob-J-Type Natriuretic Peptide December 29, 2013 7:00pm 23 [...] Encounters Encounter Location Date/Time Departed Emergency Room [facility] 12/29/13 6:19pm Registered Clinic [facility] 12/25/13 7:51am Recent Diagnosis
--- NOTE | 2016-10-21 14:26 | ERPDOC ---
Departure Disposition Decision Date: Oct 21, 2016 Disposition Decision Time: 14:23 Disposition: 01 DISCHARGED HOME, SELF-CARE Impression Impression Impression: Primary Impression: Observed seizure-like activity Severity: Moderate Condition: Stable Seen By: Mid-level only Referrals: LISA LEE DO (PCP) Patient Instructions: Nonepileptic Seizures (ED) Problems/Meds/Labs Reviewed?: Yes Medications reviewed and manag: Yes Additional Instructions: Please keep in contact with Dr. Lee's office to see if they were able to get the appointment with the neurologist scheduled for follow up. I did speak with her and she is working on this referral. Please make sure that you are getting plenty of rest and eating and drinking at home. If you have any further issues/ concerns then return to ER. Follow up care ordered?: Yes Mental Status: Alert HPI - General Medical General Chief Complaint: Altered Mental Status Stated Complaint: STARING INTO SPACE Time Seen by Provider: 13:15 Source: patient, family () Exam Limitations: no limitations HPI - General Medical Initial Comments He was at home today and was playing Wii. He did have a 20 minute episode of unresponsiveness where he had his eyes opened but stared out into space. He did not move or respond to commands at this time. He does not recall the incident. Upon arrival by EMS he was in this state but then did come around during transport. No medications were given. Upon examination in Er he is alert and oriented and talking appropriately. He states that he had an episode like this in May of last year. Was evaluated in ER at that time and had a negative head Ct. He also has had a negative MRI in late last year. He has seen Dr Lopez in the past but is going to be transitioning care to a new neurologist in [place]. He had an appointment today at [address] Lee to go over his referral. Was advised to come to Er for evaluation upon onset of symptoms however. Occurred At: home Onset: Rapid Duration: 1 hr Severity: moderate Associated Symptoms: DENIES: chest pain, cough, diaphoresis, fever/chills, headaches, loss of appetite, malaise, nausea/vomiting, rash, shortness of breath , syncope, weakness Hx of Similar Symptoms: Yes Allergies: Coded Allergies: Chocolate (Verified Allergy, Unknown, RASH, 10/21/16) hydrocodone (Verified Allergy, Unknown, ITCH, 10/21/16) potassium phosphate (Unverified Allergy, Unknown, 10/21/16) promethazine (Verified Allergy, Unknown, 10/21/16) sodium bicarbonate (Unverified Allergy, Unknown, 10/21/16) sulfamethoxazole (Verified Allergy, Unknown, 10/21/16) tolmetin (Verified Allergy, Unknown, 10/21/16) trimethoprim (Verified Allergy, Unknown, 10/21/16) ibuprofen (Verified Adverse Reaction, Unknown, RASH, 10/21/16) Past History Past Medical History Metabolic: hypothyroidism ENMT: vision problems Respiratory: asthma GI: GERD, IBS Male: UTI, kidney stones, other, prostatitis Neurological: other Musculoskeletal: osteoarthritis Psychological: anxiety, depression Surgical History General: EGD, appendix, colonoscopy, gallbladder Reproductive/: other Joint: hip, other Vaccines Hx Influenza Vaccination: No (not this year) Hx Pneumococcal Vaccination: No (unsure) Hx Tetanus, Diptheria, Pertuss: Yes (2009) Social History Does patient use chewing tobac: No Substance Use Type: does not use Alcohol Intake: none Marital Status: Single Housing: house Household Members: family Service: No Current Occupational Status: unemployed Occupational Hazard: No Advance Directives: Yes Full Code Review of Systems Constitutional Constitutional: DENIES: chills, dizziness, fatigue, fever, weakness ENMT Ears: DENIES: drainage, pain Sinuses: DENIES: congestion, rhinorrhea Mouth/Throat: DENIES: painful swallowing, scratchy throat, sore throat Cardiovascular Cardiac: DENIES: chest pain, orthopnea Rhythm/Rate: DENIES: irregular beat, palpitations Pulmonary Respiratory: DENIES: cough, dyspnea, sputum, tachypnea GI Upper Abdomen: DENIES: nausea, pain, vomiting Lower Abdomen: DENIES: constipation, diarrhea, pain Integumentary Skin: DENIES: rash Neurological General: DENIES: headache, numbness, tingling, weakness Physical Exam General General Nourishment: well nourished, well developed, appears stated age, no acute distress, adult, other (He does have history of spina bifida and limited ROM of BLE at baseline) General Body Habitus: well groomed Vitals and Pain Weight: Kilograms: Height (feet): 5 Height (inches): 2.00 Triage Pain Scale: RN VS reviewed by Provider: Yes Normal Exams: Head: Normocephalic w/o trauma Eyes: Pupils are PERRLA w/ EOMI, No scleral icterus, irritation, or foreign bodies noted ENMT: No facial trauma, nasal exudates, pharyngeal erythema, or exudates are noted Neck: Full range of motion, without adenopathy, JVD, bruits or thyromegaly Chest/Resp: Clear all [place], with good airflow, and symmetry bilaterally CV: Regular rate and rhythm, without murmur or gallop, Pulses 2+ all extremities, capillary refill, <2 seconds all ext., no pedal edema noted Abdomen: Bowel sounds positive, soft, non-tender, non-distended, no hepatosplenomegaly, masses or bruits noted Lymphatic: No lymphadenopathy, or lymphedema noted Integumentary: No rashes, hives, or bruising noted Neurologic: Patient is alert, and oriented, cranial nerves, motor/sensory/ cerebellar, exams w/o gross deficits, to observation Psychiatric: Patient exhibits, appropriate attention, emotion and affect Differential Diagnoses Considering: Acute LA, Encephalitis, Hypo/Hyperglycemia, Hypo/Hyperkalemia, Hypo/Hypernatremia, Intracranial Hemorrhage, Medication Effect, Metabolic, Seizure, TIA, UTI Progress Results/Orders Orders Procedure Category Date Status Time EKG EKG 10/21/[address] Head W/O Contrast CT 10/21/16 Resulted Chest 1 View RAD 10/21/16 Resulted Cbc W/Auto LAB 10/21/16 Complete Diff-Reflex Manual Bmp - Basic Metabolic LAB 10/21/16 Complete Panel Troponin I W LAB 10/21/16 Complete Hemolysis Index Iv Lock (Ed Only) EDM 10/21/16 Transmitted 13:21 Lab Results Laboratory Tests Test 10/21/16 13:28 White Blood Count 9.0T/MM3 Red Blood Count 5.27M/MM3 Hemoglobin 16.6GM/DL Hematocrit 50.8% Mean Corpuscular Volume 96.4UM3 Mean Corpuscular Hemoglobin 31.5UUG Mean Corpuscular Hemoglobin Concent 32.7GM/DL RDW Standard Deviation 45.0FL Platelet Count 287T/MM3 Mean Platelet Volume 9.7UM3 Immature Granulocyte % (Auto) 0.3% Neutrophils (%) (Auto) 68.3% Lymphocytes (%) (Auto) 20.0% Monocytes (%) (Auto) 5.9% Eosinophils (%) (Auto) 4.9% Basophils (%) (Auto) 0.6% Absolute Immature Granulocyte (auto 0.03T/MM3 Absolute Neutrophils (auto) 6.2T/MM3 Absolute Lymphocytes (auto) 1.8T/MM3 Absolute Monocytes (auto) 0.5T/MM3 Absolute Eosinophils (auto) 0.4T/MM3 Absolute Basophils (auto) 0.1T/MM3 Turbidity < 20 Sodium Level 149MEQ/L Potassium Level 3.9MEQ/L Chloride Level 112MEQ/L Carbon Dioxide Level 24MEQ/L Anion Gap 13MEQ/L Blood Urea Nitrogen 11.0MG/DL Creatinine 1.0MG/DL Glomerular Filtration Rate Calc 79 BUN/Creatinine Ratio 11RATIO Glucose Level 117MG/DL Calculated Osmolality 286MOSM/KG Calcium Level 9.5MG/DL Icterus Index < 2 Troponin I < 0.012ng/ml Chemistry Specimen Hemolysis < 15 Progress Progress CBC today is normal. Na-149 but unremarkable BMP otherwise. Troponin is negative. Chest xray is normal as well as head CT. His neurological exam today is normal as well. Did call and speak with Dr Lee regarding exam, lab, and Ct results. She is able to see that the referral for neurology has been sent and his information is sent for review by via [facility] neurologist but she is not able to see which one. She will keep in contact with patient regarding neurology referral. Will go ahead and let him go home today. F/U with PCP if any further concerns. KAILA PRASAD APRN Oct 21, 2016 14:26
--- NOTE | 2016-10-21 15:00 | NUR ---
DISMISS INSTRUCTIONS REVIEWED AND GIVEN TO PATIENT/PATIENT'S CAREGIVER VERBALIZED UNDERSTANDING STABLE, ASSISTED INTO WHEELCHAIR AND TAKEN TO EXIT
[2016-10-21 15:24] VITALS: BP 115/67; PULSE 64; RESP 16; O2SAT 99
== END 2016-10-21 15:00 | disposition home or self-care (01) ==
LOC: ED 13:08
DX: R56.9 Unspecified convulsions (principal)
CPT/HCPCS: 36000; 80048; 84484; 85025; 93005